=== PATIENT | female | born 1990 | race Caucasian/White ===

== ENCOUNTER 2016-08-20 06:32 | Inpatient (IN) | payer OTHER ==
[2016-08-20] VITALS (7 sets, daily range): BP systolic 116–136; BP diastolic 60–83
[~2016-08-20] VITALS: Ht 175.3 cm; Wt 94.0 kg
[~2016-08-20 06:32] MED LIST: ACET50TA PO; IBUP60TA PO; OMEP10CASR PO; PREN1TAB11 PO; ZANT1TAB PO
[2016-08-20] MEDS ORDERED: LACTATED RINGER'S 1000 ML IV STA (07:20)
[2016-08-20] MEDS ORDERED: LR 1,000 ML IV SCH (07:20)
--- NOTE | 2016-08-20 07:43 | HPEPDOC ---
Obstetrical History & Physical General Date of Admission Aug 20, 2016 at 07:23 History of Present Illness Grant is a 25yo with SIUP at 39w1d by lmp presenting with regular painful ctx overnight. No loss of fluid, no vaginal bleeding. Feels good movement. PMhx: benign course: elevated 1hr glucola with normal 3hr GTT, GERD on prilosec, lab plt 133 with repeat at 36wk 149 Chief Complaint: Contractions, term Information Provided By: Patient Care Care: Good Care Dating Final EDC: Aug 26, 2016 Final EDC by: LMP Antepartum Course Diagnos(e)s course: elevated 1hr glucola with normal 3hr GTT, GERD on prilosec, lab plt 133 with repeat at 36wk 149 Height (inches): 69 Pre- weight (lbs.): 172 Admission Weight (lbs.): 208 Change in Weight (lbs.): 36 Past Medical History Past Obstetrical History : Past Obstetrical History: Multigravida Date of Delivery: Jul 21, 2015 Gestation: 39 Type of Delivery: Spontaneous Vaginal Del. 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 Past Medical History Medical History Benign Surgical History: Tonsilectomy, [place] teeth, Other (left knee scope) Family History Significant Family History: No pertinent family hx Social History Marital Status: Family situation: Spouse/partner home Psychosocial History: No pertinent psych hx * Smoker: non-smoker Alcohol: Denies Drugs: denies Imunizations Tdap status: current Influenza Status: current Allergies Coded Allergies: Amoxicillin (Verified Allergy, Intermediate, 07/23/15) Clavulanic Acid (Verified Allergy, Intermediate, 07/23/15) Codeine (Verified Allergy, Intermediate, 07/23/15) Medications Scheduled ( Vitamin 27-0.8 mg) 1 Tab Tab 1 TAB PO DAILY Scheduled PRN Acetaminophen (Mapap) 500 Mg Tab 1,000 MG PO Q6HP PRN PRN MILD PAIN (PS 1-4) Ibuprofen (Ibuprofen) 600 Mg Tab 800 MG PO Q8HP PRN PRN MODERATE PAIN (PS 5-7) Omeprazole (PriLOSEC) 10 Mg Capcr 10 MG PO DAILY PRN PRN HEARTBURN Ranitidine HCl (Zantac) 150 Mg Tab 150 MG PO PRN PRN PRN HEARTBURN Physical Examination Physical Examination GENERAL: Alert and oriented times three. BREAST: . ABDOMEN: Gravid and non-tender to touch. FETUS: Is vertex (VTX) by sterile vaginal examination (SVE) HEART RATE: Regular rate and rhythm. LUNGS: Clear to auscultation (CTA). EXTREMITIES: No edema. Pertinent Laboratoy Data Blood Type: A+ RBC Antibody Screen: Negative HIV: Negative Hepatitis B: Negative Hepatitis C: Unknown Rapid Plasma Reagin: Nonreactive Rubella: Immune Chlamydia/Gonorrhea: Negative Group B Streptococcus: Negative Glucose Tolerance Test: 165 (3hr GTT wnl) Anatomy Ultrasound Ultrasound Date: Apr 20, 2016 Placenta Location: Anterior Normal Anatomy: Yes Placenta Previa: No Steroid Therapy Steroid Therapy: No Vaginal Examination Dilation: 4 cm Effacement: 80+% Station: -2 Cervical Consistency: Soft Cervical Position: Anterior Presentation: Cephalic presentation Assessment Heart Rate (FHR): 140 Variability: Moderate Accelerations: Positive Decelerations: None Tocometer Contractions: Yes Frequency: regular, every 2-5 min. Duration: greater than 60 seconds Strength: palpated as moderate Assessment/Plan Assessment Grant is a 25yo with SIUP at 39w1d by lmp in active labor with SCE 4/80/ -2 and ctx q2-4min. Cephalic by SCE. Cat I FHRT. GBS negative. Vitals wnl. PMhx: benign course: elevated 1hr glucola with normal 3hr GTT, GERD on prilosec, lab plt 133 with repeat at 36wk 149 Plan Admit and orient. Counselor/Art Therapist and consent. Diet: regular for breakfast then clear liquids Labs and intravenous (IV) per unit protocol. Lactated Ringers (LR): Bolus 1000 mL, then at 125 mL/hr. Anticipate normal spontaneous delivery () Dr. Aislinn Zarate MD VidaAISLINN Chang MD Aug 20, 2016 07:43
[2016-08-20 09:00] LABS: MEAN CORPUSCULAR HEMOGLOBIN 25.2 pg (27.0-33.0); MEAN CORPUSCULAR HGB CONC 31.9 g/dl (32.0-36.5); MEAN CORPUSCULAR VOLUME 78.9 fl (80.0-96.0); RED CELL DISTRIBUTION WIDTH 13.7 % (11.5-14.5); WHITE BLOOD COUNT 8.3 K/mm3 (4.0-10.0)
[2016-08-20] MEDS ORDERED: FENTANYL 2MCG/ML ROPIVACAINE 0.2% IN 0.9% NACL 200ML IVBAG As Ordered ONE (10:31)
[2016-08-20] MEDS ORDERED: REFRIGERATOR IV KEYS XX PRN (11:30)
[2016-08-20] MEDS ORDERED: LACTATED RINGER'S 1000 ML IV PRN (11:30)
[2016-08-20] MEDS ORDERED: EPIDURAL COMMENT XX SCH (11:30)
[2016-08-20] MEDS ORDERED: ePHEDrine SULFATE 25 MG/5 ML(5MG/ML) SYRINGE IV PRN (11:30)
[2016-08-20] MEDS ORDERED: EPIDURAL/PCA KEYS XX PRN (11:30)
[2016-08-20] MEDS ORDERED: diphenhydrAMINE INJ 50MG/ML VIAL (J1200) IV PRN (11:30)
[2016-08-20] MEDS ORDERED: FENTANYL/ROPIVACAINE/NACL BAG 200 ML EPIDURAL SCH (11:30)
[2016-08-20] MEDS ORDERED: ONDANSETRON 4MG/2ML VIAL (J2405) IV PRN (11:30)
[2016-08-20] MEDS ORDERED: NALOXONE INJ 0.4 MG/1 ML VIAL (J2310) IV PRN (11:30)
[2016-08-20] MEDS ORDERED: OXYTOCIN 30 UNITS IN 0.9% NaCl 500ML IV BAG (J2590) As Ordered ONE (19:13)
[2016-08-20] MEDS ORDERED: OXYTOCIN DRIP 30 UNITS in APPROPRIATE DILUENT 1 EA IV SCH (22:14)
[2016-08-20] MEDS ORDERED: DIBUCAINE 1% OINTMENT 30GM TOP PRN (22:15)
[2016-08-20] MEDS ORDERED: ACETAMINOPHEN 500 MG TAB PO PRN (22:15)
[2016-08-20] MEDS ORDERED: RHOGAM 300 MCG (1500 IU) INJ (J2790) IM SCH (22:15)
[2016-08-20] MEDS ORDERED: DOCUSATE SODIUM 100 MG CAP PO PRN (22:15)
[2016-08-20] MEDS ORDERED: MEASLES,MUMPS,RUBELLA VACCINE INJ (MMR-II) (90707) SC SCH (22:15)
[2016-08-20] MEDS ORDERED: METHYLERGONOVINE MALEATE 0.2 MG TAB PO PRN (22:15)
[2016-08-21 00:09] VITALS: BP 119/64
[2016-08-21 00:30] VITALS: BP 116/64
[2016-08-21] MEDS: IBUPROFEN 800 MG TAB PO PRN ×3 (01:01→17:52)
[2016-08-21 06:00] VITALS: BP 111/55
[2016-08-21] MEDS: PRENATAL VITAMIN TAB PO SCH (09:05)
[2016-08-21 18:02] VITALS: BP 142/76
[2016-08-22 06:14] VITALS: BP 121/72
[2016-08-22] MEDS: IBUPROFEN 800 MG TAB PO PRN (07:42)
[2016-08-22] MEDS: PRENATAL VITAMIN TAB PO SCH (07:42)
== END 2016-08-22 11:40 | disposition home or self-care (01) | DRG 775 ==
LOC: M LDO 06:32 → M LDI 07:23 → M OBS 08-21 00:22
PROVIDERS: ADMIT Obstetrics & Gynecology; ATTEND Advanced Practice Midwife
PROC: 10E0XZZ Delivery of Products of Conception, External Approach (ICD-10-PCS; principal; 2016-08-20)
PROC: 10907ZC Drainage of Amniotic Fluid, Therapeutic from Products of Conception, Via Natural or Artificial Opening (ICD-10-PCS; 2016-08-20)
DX: O99.62 Diseases of the digestive system complicating childbirth (principal); K21.9 Gastro-esophageal reflux disease without esophagitis; Z3A.39 39 weeks gestation of pregnancy; Z37.0 Single live birth